=== PATIENT | female | born 1950 ===

== ENCOUNTER 2022-02-28 06:11 | Day surgery (SDC) | payer MEDICARE, OTHER, SELFPAY ==
--- NOTE | 2022-02-25 09:00 | W.PREOPHP ---
Assessment and Plan Assessment and plan (1) Nuclear sclerotic cataract of right eye: Status: Acute Assessment and plan: Assessment: History of myopia, status post cataract surgery in the left eye, now with anisometropia and visually significant cataract in the right eye. Plan: Cataract extraction with lens implantation of the right eye. (2) Posterior subcapsular age-related cataract, right eye: Status: Acute Assessment and plan: Assessment: History of myopia, status post cataract surgery in the left eye, now with anisometropia and visually significant cataract in the right eye. Plan: Cataract extraction with lens implantation of the right eye. (3) Cortical cataract of right eye: Status: Acute Assessment and plan: Assessment: History of myopia, status post cataract surgery in the left eye, now with anisometropia and visually significant cataract in the right eye. Plan: Cataract extraction with lens implantation of the right eye. History of Present Illness History of Present Illness Chief Complaint: Progressive decreased vision, right eye Narrative: The patient is a 71-year-old lady with history of diminished visual acuity in both eyes secondary to the development of bilateral nuclear and cortical cataract. She is significantly symptomatic that she desired cataract surgery and attempt to improve and maximize her vision. She underwent cataract surgery in the left eye on 02/09/2022 and postoperatively has regained uncorrected visual acuity of 20/20 in the left eye. She has a history of myopia and is now significantly anisometropic. She now presents for cataract surgery in the right eye. Review of Systems All systems reviewed & are unremarkable except as noted in HPI and below PFSH All Active Problems Nuclear sclerotic cataract of right eye (Acute) Posterior subcapsular age-related cataract, right eye (Acute) Cortical cataract of right eye (Acute) Medical History Anxiety Constipation COPD (chronic obstructive pulmonary disease) GERD (gastroesophageal reflux disease) Hearing loss Herpes simplex High cholesterol History of fracture of ankle ORIF repair Osteoarthritis Osteoporosis Palpitations Vertigo Surgical History History of cataract surgery History of colonoscopy History of wrist fracture repair ORIF Hx of shoulder surgery Social History Smoking/Tobacco Use Status: Former Tobacco Use Smoking risk assessment performed?: Yes Alcohol Intake: current Alcohol Intake frequency: a few times a week Alcohol type: wine Drug use: Never Substance use type: does not use Do you feel safe at home: Yes Do you feel safe in your relationship?: Yes Meds Allergies and Home Medications Allergies Allergy/AdvReac Type Severity Reaction Status Date / Time Penicillins Allergy Mild Itching Verified 02/28/22 06:30 Home Medications Medication Instructions Recorded Confirmed Type acetaminophen 500 mg capsule 500 mg PO Q6H PRN 02/24/22 02/28/22 History alprazolam 0.5 mg tablet (Xanax) 0.5 mg PO DAILY PRN 02/24/22 02/28/22 History betamethasone dipropionate 0.05 % 1 applic topical BID 02/24/22 02/28/22 History topical cream estradiol 0.5 mg tablet (Estrace) mg PO QWEEK 02/24/22 History ibuprofen 200 mg tablet 600 mg PO Q6H PRN 02/24/22 02/28/22 History valacyclovir 500 mg tablet 500 mg PO BID 02/24/22 02/28/22 History (Valtrex) Exam Eyes Other: Most recent ocular exam is significant for uncorrected visual acuity of 20/20 in the left eye. Corrected visual acuity is 20/25 in the right eye. Extraocular motility is normal. Pupil exam is normal. Slit-lamp examination is significant for mild cortical with moderate nuclear and mild posterior subcapsular cataract in the right eye. A well-positioned PCIOL is present in the left eye with clear posterior capsule. Funduscopic examination is significant for disc cupping of 0.3 OU with normal vessels, macula, peripheral retina and vitreous. Resp Auscultation: clear to auscultation bilaterally Cardio Rate: regular rate Rhythm: regular rhythm
[2022-02-28 06:20] VITALS: BP 105/64; PULSE 73; RESP 18; TEMP 36.4; O2SAT 97
[2022-02-28] MEDS: Tropicam./Phenyleph. (1/2.5%) 5 ML BTL OD ×3 (06:32→06:45)
--- NOTE | 2022-02-28 06:54 | ANES.PREOP_ITS ---
General Info Date of Service Date Performed: 02/28/22 Height: 5 ft 5 in Weight: 61.9 kg Body Mass Index (BMI): 22.6 Surgical Procedure: Operation Date: 02/28/22 07:40 Proposed Procedure Side Surgeon p Cataract Extraction with IOL Implant Right Reggie Lynn MD Meds Allergies and Home Medications Allergies Allergy/AdvReac Type Severity Reaction Status Date / Time Penicillins Allergy Mild Itching Verified 02/28/22 06:30 Home Medication Medication Instructions Recorded acetaminophen 500 mg capsule 500 mg PO Q6H PRN 02/24/22 alprazolam 0.5 mg tablet (Xanax) 0.5 mg PO DAILY PRN 02/24/22 betamethasone dipropionate 0.05 % 1 applic topical BID 02/24/22 topical cream estradiol 0.5 mg tablet (Estrace) mg PO QWEEK 02/24/22 ibuprofen 200 mg tablet 600 mg PO Q6H PRN 02/24/22 valacyclovir 500 mg tablet 500 mg PO BID 02/24/22 (Valtrex) Current Visit Medications: Current Medications Generic Name Dose Route Start Last Admin Trade Name Freq PRN Reason Stop Dose Admin Acetaminophen 1,000 mg 02/28/22 06:00 Acetaminophen 500 Mg Tab PO Q4H PRN PRN Miscellaneous Medication 0 ml 02/28/22 06:00 Prednisolone 1%, Moxifloxacin 0.5%, Nepafenac 0.1% 5ml Btl OD DIRECTED COUNT INCLUDES THE [facility] Miscellaneous Medication 0 ml 02/28/22 06:00 02/28/22 06:45 Tropicam./Phenyleph. (1/2.5%) 5 Ml Btl OD 1 drp DIRECTED XI Administration Tetracaine HCl 0 ml 02/28/22 06:00 Tetracaine 0.5% 4 Ml Btl OD DIRECTED COUNT INCLUDES THE [facility] PFSH Active Problems Active Problems: Problem Status Onset Code Nuclear sclerotic cataract of right eye H25.11 Posterior subcapsular age-related cataract, right eye H25.041 Cortical cataract of right eye H26.9 Medical History Medical History Anxiety Constipation COPD (chronic obstructive pulmonary disease) GERD (gastroesophageal reflux disease) Hearing loss Herpes simplex High cholesterol History of fracture of ankle ORIF repair Osteoarthritis Osteoporosis Palpitations Vertigo Surgical History Surgical History History of cataract surgery History of colonoscopy History of wrist fracture repair ORIF Hx of shoulder surgery Tobacco Smoking/Tobacco Use Status: Former Tobacco Use Alcohol Alcohol Intake: current Alcohol intake frequency: a few times a week Alcohol type: wine Substance Use Substance use: Never Substance use type: does not use Vital Signs and Lab Results Vital Signs Most Recent Vital Signs in EMR: Most Recent Vital Signs Temp Pulse Resp BP Pulse Ox 36.4 C L 73 18 105/64 97 02/28/22 06:20 02/28/22 06:20 02/28/22 06:20 02/28/22 06:20 02/28/22 06:20 Lab Results Blood Type / Crossmatch: No Data to Display Complete Blood Count: No Data to Display Complete Metabolic Panel: No Data to Display Liver Function Panel: No Data to Display Coagulation Panel: No Data to Display Cardiac Panel: No Data to Display Arterial Blood Gas: No Data to Display Venous Blood Gas: No Data to Display Pancreas Panel: No Data to Display Thyroid Panel: No Data to Display Infectious Disease: No Data to Display Blood Cultures: No Data to Display Toxicology Panel: No Data to Display Anesthesia Assessment and Plan Anesthesia History Personal History: No History of Anesthesia Complications Family History: No Family History of Anesthesia Complications Exercise Tolerance Exercise Tolerance: Metabolic Equivalents>4 Pertinent Negatives Pertinent Negatives: No Symptoms of GERD Cardiac & Pulmonary Exam Cardiac Exam: Normal S1/S2 Heart Sounds Pulmonary Exam: Clear Bilateral Breath Sounds Implantable Cardiac Device Does patient have a Pacemaker or an ICD?: No Airway Exam Known Difficult Airway: No Mallampati Class: 2 Mouth Opening: Normal (> 3cm) Thyromental Distance: Greater than 3 cm Neck Range of Motion: Full ROM Neck Circumference: Normal Teeth Condition: Normal Dentition ASA Classification ASA Score: ASA 2 Emergency Case?: No NPO Status NPO Status: NPO Clears >2 hours, Solids >8 hours Anesthesia Plan Resuscitation Status: Full Code Anesthesia Technique: MAC Anesthesia Airway Planned: Natural Airway Monitors Used: Standard Monitors
[2022-02-28 06:57] VITALS: BMI 22.6
[2022-02-28] MEDS: Povidone-Iodine Ophth 30 ML BTL (07:25)
[2022-02-28] MEDS: Lidocaine 2% Jelly 6 ML SYR (07:25)
[2022-02-28] MEDS: Tetracaine 0.5% 4 ML BTL OD (07:25)
[2022-02-28] MEDS: Lidocaine 1% Pres-Free 5 ML VIAL (07:33)
[2022-02-28] MEDS: Balanced Salt Soln.-PLUS 500 ML BAG (07:36)
[2022-02-28] MEDS: Duovisc Viscoelastic System EACH 1 EACH (07:37)
[2022-02-28 07:52] VITALS: BP 90/68; PULSE 66; RESP 16; TEMP 36.3; O2SAT 98
--- NOTE | 2022-02-28 07:54 | ROE_ITS ---
Date of service: 02/28/22 Time of Service: 07:54 Operative Note Operative Note DATE OF PROCEDURE: 02/28/22 PRE-OP DIAGNOSIS: Nuclear/cortical/posterior subcapsular cataract, right eye POST-OP DIAGNOSIS: same PROCEDURE: Cataract extraction using phacoemulsification with intraocular lens implant, right eye SURGEON: Reggie Lynn ANESTHESIA TYPE: Local By Surgeon and MAC Refer to Anesthesia Record ESTIMATED BLOOD LOSS: 0 PATHOLOGY: none sent COMPLICATIONS: None Patient was transported to: same day Patient's condition: stable Implants: [employer] Frank/JONATHON Tecnis [id number] Indications: Progressive visual loss due to cataract, right eye Procedure Description: CATARACT SURGERY OPERATIVE REPORT PREOPERATIVE DIAGNOSIS: 1. Nuclear/cortical/posterior subcapsular cataract, right eye POSTOPERATIVE DIAGNOSIS: Same OPERATION: 1. Cataract extraction using phacoemulsification with posterior chamber intraocular lens implant, right eye. IOL: IOL Material Control Associate/Model: [employer] Frank / JONATHON Tecnis [id number] IOL Power: + 16.5 diopters IOL Serial Number: [id number] Optic Diameter: 6.0mm Haptic/Overall Diameter: 13.0mm PHACO INFO: [employer] Vision System with OZil and Active [employer]uidics Cumulative Dispersed Energy (CDE): 6.83 seconds SURGEON: Reggie Lynn MD, BENJIE ANESTHESIA: Monitored Anesthesia Care (MAC), with local sub-tenon's anesthetic infiltration COMPLICATIONS: None SPECIMENS: None INDICATIONS FOR PROCEDURE: The patient is a 71-year-old lady with history of diminished visual acuity in both eyes secondary to the development of bilateral cataracts. She has already undergone cataract surgery in the left eye and is doing well postoperatively. She now presents for cataract surgery in the right eye. PROCEDURE: The correct surgical eye was identified and marked as the right eye and the pupil was dilated in the preoperative area using mydriatics and cycloplegics. The dilated pupil size was 7.0 mm. Oral sedation was administered in the form of an Imprimis MKO Melt (midazolam 3mg/ketamine 25mg/ondansetron 2mg). The patient was brought to the operating room where cardiopulmonary monitoring was instituted and surgical time-out was performed, confirming the correct operative eye and IOL power. Topical anesthesia was administered and ophthalmic povidone-iodine 5% was instilled into the conjunctival fornices. Lidocaine gel was applied to the cornea and the cony-ocular area was prepped with Betadine 10% solution and draped in the usual sterile fashion for intraocular surgery, including an aperture drape. A Tegaderm transparent film dressing was cut in half and used to cover the lashes and lid margins. Care was taken to sequester the lashes and lid margins under the Tegaderm dressing. A lid speculum was placed between the lids of the operative eye and the Jacky Lux[employer] Revalia operating microscope was maneuvered into position. Thad scissors were then used to make a conjunctival buttonhole approximately 6mm posterior to the limbus in the inferonasal quadrant. Blunt dissection was carried out to expose bare sclera, and a blunt-tipped sub-tenon?s anesthesia cannula was introduced and passed posteriorly along the globe where non- preserved plain lidocaine was injected into posterior sub-Tenon?s space. A sideport knife was used to make a paracentesis port inferotemporally. Intraocular phenylephrine/lidocaine was injected into the anterior chamber. The anterior chamber was filled with viscoelastic. A keratome knife was used to construct a 2-plane near-clear corneal tunnel extending 2.0mm into clear cornea superiortemporally. A flap was raised on the anterior capsule and capsulorhexis forceps were used to complete a continuous curvilinear capsulorhexis of 5.5 mm. Balanced salt solution was then used to perform cortical cleaving hydrodissection and nuclear hydrodelineation until the lens could be freely rotated within the capsular bag. The lens nucleus was then disassembled and removed within the capsular bag and iris plane using phacoemulsification. Resid ual cortical material was removed using the I/A handpiece. The posterior capsule was carefully polished to remove as much residual lens epithelial cells as safely possible. The capsular bag was then inflated and the anterior chamber deepened with viscoelastic. The lens implant described above was inserted into the capsular bag using the JONATHON [place] Injector. A Kuglen hook was used to dial the IOL into position. Residual viscoelastic was then removed first from posterior to the IOL, then from the anterior chamber using the I/A handpiece. The lens implant was noted to center nicely within the capsular bag. The incisions were stromally hydrated, and the anterior chamber was reformed using BSS. Then 0.5cc of moxifloxacin 1.0mg/ml were injected into the capsular bag and anterior chamber. The incisions were checked with a Weck spear and found to be secure. Several drops of ophthalmic povidone-iodine 5% were then applied to the eye followed by two drops of Imprimis combination prednisolone/moxifloxacin/nepafenac solution. The drapes were removed and a clear plastic protective eye shield was placed over the eye. The patient was then returned to Same Day Surgery in stable condition.
--- NOTE | 2022-02-28 08:03 | W.ANESPOSTOP ---
Postoperative Evaluation Date, Time and Location Date Performed: 02/28/22 Time Performed: 07:58 Patient Location: Day Surgery Unit Vital Signs Most Recent Imported Vital Signs: Most Recent Vital Signs Temp Pulse Resp BP Pulse Ox 36.3 C L 66 16 90/68 L 98 02/28/22 07:52 02/28/22 07:52 02/28/22 07:52 02/28/22 07:52 02/28/22 07:52 Pain Score Most Recent Pain Score: Most Recent Pain Score Pain Level 0 02/28/22 07:52 Assessment Mental Status: Awake (Alert & Oriented to Patient Baseline) Airway and Respiratory Function: Patent airway with normal (patient baseline) respiratory exam Cardiovascular Function: Hemodynamically Stable Hydration Status: Adequately Hydrated Nausea & Vomiting: No Nausea or Vomiting Pain: Pt. Denies Any Pain Peripheral Nerve Block: Patient did not receive a nerve block
[2022-02-28 08:19] VITALS: BP 102/65; PULSE 75; RESP 16; TEMP 36.1; O2SAT 96
== END 2022-02-28 08:31 | disposition home or self-care (01) ==
PROVIDERS: Visit Provider Ophthalmology
PROC: (CPT 66984; principal; 2022-02-28 07:30)
DX: H25.041 Posterior subcapsular polar age-related cataract, right eye (principal)
CPT/HCPCS: 66984; V2632